=== PATIENT | female | born 1955 | race Caucasian/White ===

== ENCOUNTER 2022-06-28 18:53 | Emergency (ER) | payer MEDICARE ==
[2022-06-28 19:35] LABS: ARTERIAL BLOOD GAS PO2 448.9 (80-90); BASO % 0.2 % (0.0-1.0); EOS % 0.1 % (1.0-4.0); HEMATOCRIT 42.7 % (37.0-47.0); LYMPH # 2.9 10*3/uL (1.3-4.4); LYMPH % 17.8 % (27.0-41.0); MEAN CELL VOLUME 97.3 fl (81.0-99.0); MEAN CORPUSCULAR HGB 32.1 pg (27.0-31.0); MEAN PLATELET VOLUME 9.3 fl (9.6-12.3); MONO # 0.7 10*3/uL (0.1-1.0); MONO % 4.3 % (3.0-9.0); NEUT # 12.4 10*3/uL (2.3-7.9); NEUT % 77.1 % (47.0-73.0); PLATELET COUNT AUTOMATED 339 10*3/uL (130-400); RED BLOOD COUNT 4.39 10*6/uL (4.10-5.10); RED CELL DISTRI WIDTH 13.5 % (0-14.5)
[2022-06-28 19:38] LABS: ABG BASE EXCESS -11.4 mmol/L (-2.0-2.0); ARTERIAL BLOOD GAS PH 7.146 (7.35-7.45)
[2022-06-28 19:54] LABS: ACETAMINOPHEN (TYLENOL) 12.9 ug/ml (10-30); ALKALINE PHOSPHATASE 67 U/L (45-117); BUN 19 mg/dl (7-24); CHLORIDE 109 mmol/L (98-107); CREATININE 1.36 mg/dL (0.55-1.02); POTASSIUM 3.2 mmol/L (3.5-5.1); SGOT/AST 35 IU/L (3-35); SGPT/ALT 29 U/L (12-78); SODIUM 142 mmol/L (136-145); TOTAL PROTEIN 6.2 gm/dL (6.4-8.2)
[2022-06-28 19:55] LABS: ETHYL ALCOHOL < 3.0 mg/dl (<3)
[2022-06-28 20:27] LABS: ACT PARTIAL THROMBO TIME 25.6 SECONDS (20.0-32.1)
== END 2022-06-28 21:30 | disposition short-term general hospital (02) ==
LOC: ED 18:53
PROVIDERS: Emergency Medicine
DX: I61.3 Nontraumatic intracerebral hemorrhage in brain stem (principal)